=== PATIENT | male | born 2000 | race Caucasian/White ===

== ENCOUNTER 2020-03-26 21:56 | Emergency (ER) | payer OTHER ==
[~2020-03-26] VITALS: Ht 190.5 cm; Wt 67.5 kg
[2020-03-26 22:00] VITALS: BP 136/76
[2020-03-26] MEDS ORDERED: LIDOCAINE-MPF 1%, 5ML INFIL ONE (22:30)
[2020-03-26] MEDS ORDERED: AMOXICILLIN/CLAV 875-125MG TABLET PO ONE (22:30)
[2020-03-26] MEDS ORDERED: AMOXICILLIN/CLAV 875-125MG TABLET ONE (22:36)
[2020-03-26] MEDS ORDERED: LIDOCAINE-MPF 1%, 5ML ONE (22:36)
== END 2020-03-26 23:36 | disposition home or self-care (01) ==
LOC: ED 22:30
DX: S01.511A Laceration without foreign body of lip, initial encounter (principal); S01.81XA Laceration without foreign body of other part of head, initial encounter; W54.0XXA Bitten by dog, initial encounter; Y93.89 Activity, other specified; Y92.488 Other paved roadways as the place of occurrence of the external cause; Y99.8 Other external cause status
CPT/HCPCS: 12051; 99285